=== PATIENT | male | born 2005 | race Caucasian/White ===

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

== ENCOUNTER → 2024-11-27 12:44 | Outpatient (REF) | payer BC, SELFPAY | LOC: REG 12:44 | PROVIDERS: ATTENDING PHYSICIAN Internal Medicine | DX: T78.05XD Anaphylactic reaction due to tree nuts and seeds, subsequent encounter (principal); T78.00XD Anaphylactic reaction due to unspecified food, subsequent encounter | CPT/HCPCS: 36415 ==